=== PATIENT | female | born 2000 | race Caucasian/White ===

== ENCOUNTER 2021-01-20 23:04 | Emergency (ER) | payer BC, MEDICAID, SELFPAY ==
[2021-01-20 23:12] VITALS: BP 166/112; PULSE 75; RESP 18; TEMP 36.8; O2SAT 100; BMI 39.9
--- NOTE | 2021-01-21 00:16 | ED_ITS ---
HPI - Female Genitourinary General: Chief complaint: Urogenital-Female Stated complaint: bleeding, 5 1/2 weeks Time Seen by Provider: 01/21/21 00:16 History of Present Illness: HPI Narrative: Patient is a 20-year-old female that is currently 5-1/2 weeks and comes to the ED with vaginal bleeding. This is patient's first . Around 10:00 tonight she stood up to go to the restroom and the little bit of blood ran down her leg. Says the bleeding has been a small amount. She denies any abdominal pain or cramping. She has an appointment with her OB doctor set up for this coming January 25. Denies any fever, chills, nausea/vomiting. Associated symptoms: Deny abdominal pain, headache(s) or nausea Review of Systems 2 Const: Denies: fever(s), chills or fatigue Eyes: Denies: change in vision or eye discomfort ENMT: Denies: throat pain, odynophagia, nasal discharge or nasal congestion Card: Denies: chest pain, palpitations, edema, swelling of feet/ankles, dyspnea on exertion or orthopnea Resp: Denies: dyspnea, productive cough or non-productive cough GI: Denies: abdominal pain, nausea, vomiting, diarrhea, constipation or hematochezia : Reports: vaginal bleeding; Denies: flank pain, dysuria or hematuria Musc: Denies: neck pain, back pain or extremity swelling Skin/Breast: Denies: rash or new lesions Neuro: Denies: headache(s), numbness in extremities or weakness in extremities PFS ED PFSH: Social History Smoking and tobacco status: never smoked Physical Exam Const: COMMON NORMALS: no acute distress, patient oriented x3, healthy appearing and alert GENERAL APPEARANCE: cooperative and comfortable HENMT: COMMON NORMALS: normocephalic HEAD & SCALP: normocephalic MOUTH: Normal oral and palatal mucosa present THROAT: posterior oropharynx normal and uvula midline Eye: COMMON NORMALS: Equal, round and reactive pupils present PUPIL: Yes Equal, round and reactive pupils present Neck/C-Spine: COMMON NORMALS: supple GENERAL: Yes normal visual inspection Resp: COMMON NORMALS: normal respiratory effort, No retractions, No use of accessory muscles and clear to auscultation bilaterally AUSCULTATION: clear to auscultation bilaterally Cardio: COMMON NORMALS: regular rate, regular rhythm, S1 normal heart sound present, S2 normal heart sound present, No gallops present (Cardio), No clicks present (Cardio), No murmurs present (Cardio) and Peripheral pulses 2+ throughout RATE: regular rate RHYTHM: regular rhythm HEART SOUNDS: S1 normal heart sound present and S2 normal heart sound present PERIPHERAL PULSES: Peripheral pulses 2+ throughout GI: COMMON NORMALS: Normal to inspection, nondistended, normoactive bowel sounds present, Soft to palpation, non-tender and no masses PALPATION: Yes Soft to palpation : COMMON NORMALS: Yes no CVA tenderness BLADDER/KIDNEY EXAM: Yes no CVA tenderness Back/Pelvis: COMMON NORMALS: no CVA tenderness Extremity: COMMON NORMALS: normal to inspection Neuro: COMMON NORMALS: patient oriented x3 and moves all extremities SENSORIUM/ORIENTATION: Yes alert Skin: GENERAL SKIN EXAM: dry skin Course Vital Signs: Vital signs: Vital Signs Temperature 98.2 F 01/20/21 23:12 Pulse Rate 70 01/21/21 01:24 Respiratory Rate 18 01/20/21 23:12 Blood Pressure 152/99 01/21/21 01:24 Pulse Oximetry 99 01/21/21 01:24 MDM - Female MDM Narrative: Medical decision making narrative: Patient is a 20-year-old female that is currently 5 and half weeks comes to the ED with light vaginal bleeding. This is patient's first . Denies any other symptoms. Vital stable. Patient appears nontoxic and in no acute distress. The rest of exam is benign. CBC is unremarkable. UA shows some RBCs but no signs of infection. Patient is Rh type positive and hCG quant was 5967. Ultrasound showed a intrauterine gestational sac but no viability visible at this time. Small subchorionic hemorrhage noted. Patient was discharged home and told to follow-up with her OB doctor at her next scheduled appointment which is on January 25. Return to ED precautions given. She was told to have follow-up ultrasound done within the next 10 to 14 days. Patient understood and agreed with plan. Lab Data: Attestation: I reviewed the patient's lab results. Labs: Lab Results 01/20/21 01/21/21 01/21/21 23:44 00:51 00:51 WBC 9.7 10^3/uL 10^3/ uL (4.0-10.0) RBC 4.71 10^6/uL 10^6 /uL (4.1-5.3) Hgb 11.8 g/dL g/dL (11.5-15.3) Hct 37.6 % % (37.0-47.0) MCV 79.8 fl L fl (81-99) MCH 25.1 pg L pg (28.0-34.0) MCHC 31.4 g/dL g/dL (30.0-36.0) RDW 15.0 % % (12.1-15.1) Plt Count 346 10^3/cmm 10^3 /cmm (130-400) MPV 11.2 fL H fL (7.4-10.4) Neut % (Auto) 55.9 % % Lymph % (Auto) 33.3 % % [place] % (Auto) 7.3 % % Eos % (Auto) 2.6 % % Baso % (Auto) 0.5 % % Neut # (Auto) 5.44 10^3/uL 10^3 /uL (1.8-7.7) Lymph # (Auto) 3.2 10^3/uL 10^3/ uL (0.8-4.8) [place] # (Auto) 0.7 10^3/uL 10^3/ uL (0.2-0.9) Eos # (Auto) 0.3 10^3/uL 10^3/ uL (0.0-0.8) Baso # (Auto) 0.1 10^3/uL 10^3/ uL (0.0-0.1) Nucleated RBC % (a uto) 0 % % Nucleated RBCs # 0.0 /100WBC /100W BC Ser , [place] i-Qnt Urine Color Red (Yellow) Urine Appearance Cloudy (CLEAR) Urine pH 6.5 (5-7) Ur Specific Gravit y 1.015 (1.005-1.030) Urine Protein 1+ H (Negative) Urine Glucose (UA) Norm (Normal) Urine Ketones Negative (Negative) Urine Blood 3+ H (Negative) Urine Nitrate Negative (Negative) Urine Bilirubin Neg (Negative) Urine Urobilinogen 4 mg/dL H mg/dL (Negative) Ur Leukocyte [place] ase Negative (Negative) Urine RBC Too numerous to c nt /hpf H /hpf (0-2) Urine WBC 0-4 /hpf H /hpf (0-5) Ur Squamous Epith Cells 0-4 /hpf H /hpf (0-5) Ur Transition Epit h Cell None /hpf /hpf Amorphous Sediment Not Reportable Urine Bacteria None /hpf /hpf (NONE) Blood Type O Positive Rho(D) Type Positive Antibody Screen Negative 01/21/21 00:51 WBC RBC Hgb Hct MCV MCH MCHC RDW Plt Count MPV Neut % (Auto) Lymph % (Auto) [place] % (Auto) Eos % (Auto) Baso % (Auto) Neut # (Auto) Lymph # (Auto) [place] # (Auto) Eos # (Auto) Baso # (Auto) Nucleated RBC % (a uto) Nucleated RBCs # Ser , [place] i-Qnt 5967.00 mIU/mL mI U/mL Urine Color Urine Appearance Urine pH Ur Specific Gravit y Urine Protein Urine Glucose (UA) Urine Ketones Urine Blood Urine Nitrate Urine Bilirubin Urine Urobilinogen Ur Leukocyte [place] ase Urine RBC Urine WBC Ur Squamous Epith Cells Ur Transition Epit h Cell Amorphous Sediment Urine Bacteria Blood Type Rho(D) Type Antibody Screen Imaging Data: US OB: Attestation: I personally reviewed and interpreted this imaging study as follows: Radiologist's impression: Ultrasound?OB less than 14 weeks with transvaginal?prelim report?gestational sac seen in utero. [address] [address] Ultrasound Report Signed Patient: Yao Carmichael Unit #: [id number] : 2000 Age/Sex: 20 / F ADM Date: 01/20/21 Loc: ER Room/Bed: Attending Dr: Ordering Provider/Ordering MD: Isai Choi MD Date of Service: 01/21/21 Procedure(s): US OB <= 14 weeks fetus [id number] Accession Number(s): [id number] Report Number: [id number] PROCEDURE INFORMATION: Exam: US , Transvaginal Exam date and time: 01/21/2021 11:07 PM Age: 20 years old Clinical indication: complicated by abdominal or pelvic pain; Left lower quadrant; First trimester (<14 weeks 0 days); Gestational age or lmp: 5 w 5 d; ; Additional info: Threatened miscarriage TECHNIQUE: Imaging protocol: Real-time transvaginal obstetrical ultrasound of the maternal pelvis with image documentation. Transvaginal imaging was used for better evaluation of the fetus, adnexa, and/or cervix. COMPARISON: No relevant prior studies available. FINDINGS: Gestation: Probable intrauterine gestational sac. Mean gestational sac diameter 11 mm. Probable small yolk sac seen. pole not confidently visible at this time. heart rate: No cardiac activity documented. Placenta: There is possibly a tiny subchorionic hematoma. Amniotic fluid: Amniotic fluid volume subjectively adequate. MATERNAL: Right adnexa: Maternal right ovary normal in size and appearance with unremarkable internal vascularity. Left adnexa: Maternal left ovary normal in size and appearance with unremarkable internal vascularity. Intraperitoneal space: No pelvic fluid collection. US/US OB <= 14 weeks fetus [id number] IMPRESSION: 1. Possible intrauterine gestational sac although viability is not confirmed at this time. 2. Pseudo gestational sac cannot be excluded, therefore ectopic is technically not excluded at this time. 3. Query small subchorionic hemorrhage. 4. Follow-up OB ultrasound imaging 10-14 days recommended. Radiation Dose CTDIVOL = (mGy): DLP = (mGy-cm) Dictated By: Carter Melendez Signed By: Carter Melendez Signed Date/Time: 01/21/21142 DD/ 663 Discharge Plan Discharge Patient Disposition: Home Clinical Impression: Qualifiers: Weeks of gestation: less than 8 weeks Qualified Code(s): Z3A.01 - Less than 8 weeks gestation of Condition: Stable Prescriptions: No Action triamcinolone acetonide 0.1 % cream 1 applic topical BID Qty: 28.4 RF: 0 prednisone 20 mg tablet 60 mg PO DAILY 9 Days Qty: 18 RF: 0 Discharge Orders: Discharge ED (Routine); Ordered 01/21/21 Ordered By: Oliver Yañez Discharge Diet: Regular Discharge Activity: Increase activity as tolerated Patient Instructions: (ED) Activity Restrictions/Additional Instructions: Follow-up with medical provider as directed. Follow-up with your OB doctor at your next scheduled appointment on [place]. It is recommended that you have a follow-up ultrasound done in the next 10 to 14 days. Take [id number] Tylenol for any pain. Return to the ER or your medical provider if condition worsens. Please read and understand discharge instructions. Thank you for choosing [facility] for your healthcare needs today. Please realize this is an emergency room and that we are providing you with a medical screening exam and this may not be complete and all inclusive of all the testing and or work up that you may need to determine your ailment or severity of your illness. It is very important that you follow up as instructed or that you return to the Emergency Department should you have concerns or if your condition changes or worsens in any way. Coding Level of Care Code ED [employer] for Leatha Estevez Exam Comprehensive
[2021-01-21 00:55] LABS: Bilirubin Urine Neg (Negative); Blood Urine 3+ (Negative); Glucose Urine UA Norm (Normal); Ketones Urine Negative (Negative); Nitrate Urine Negative (Negative); Protein Urine 1+ (Negative); Specific Gravity, Urine 1.015 (1.005-1.030); Urine Appearance Cloudy (CLEAR); Urine Color Red (Yellow); pH Urine 6.5 (5-7)
[2021-01-21 00:56] LABS: Add Urine Microscopic? YES; Leukocyte Esterase Urine Negative (Negative); RBC Urine TOO NUMEROUS TO CNT /hpf (0-2); Urobilinogen Urine 4 mg/dL (Negative); WBC Urine 0-4 /hpf (0-5)
[2021-01-21 00:57] LABS: Add Urine Culture? Yes; Squamous Epithelial Cell Urine 0-4 /hpf (0-5)
[2021-01-21 01:08] LABS: Basophils # 0.1 10^3/uL (0.0-0.1); Basophils % 0.5 %; Eosinophils # 0.3 10^3/uL (0.0-0.8); Eosinophils % 2.6 %; Hematocrit 37.6 % (37.0-47.0); Hemoglobin 11.8 g/dL (11.5-15.3); Lymphocytes # 3.2 10^3/uL (0.8-4.8); Lymphocytes % 33.3 %; Mean Corpuscular HGB Conc 31.4 g/dL (30.0-36.0); Mean Corpuscular Hemoglobin 25.1 pg (28.0-34.0); Mean Corpuscular Volume 79.8 fl (81-99); Mean Platelet Volume 11.2 fL (7.4-10.4); Monocytes # 0.7 10^3/uL (0.2-0.9); Monocytes % 7.3 %; Neutrophils # 5.44 10^3/uL (1.8-7.7); Neutrophils % 55.9 %; Nucleated Red Blood Cells % 0 %; Platelet Count 346 10^3/cmm (130-400); Red Blood Count 4.71 10^6/uL (4.1-5.3); White Blood Count 9.7 10^3/uL (4.0-10.0)
[2021-01-21 01:24] VITALS: BP 152/99; PULSE 70; O2SAT 99
[2021-01-21 03:07] VITALS: RESP 18
--- NOTE | 2021-01-21 23:07 | USR_ITS ---
PROCEDURE INFORMATION: Exam: US , Transvaginal Exam date and time: 01/21/2021 11:07 PM Age: 20 years old Clinical indication: complicated by abdominal or pelvic pain; Left lower quadrant; First trimester (<14 weeks 0 days); Gestational age or lmp: 5 w 5 d; ; Additional info: Threatened miscarriage TECHNIQUE: Imaging protocol: Real-time transvaginal obstetrical ultrasound of the maternal pelvis with image documentation. Transvaginal imaging was used for better evaluation of the fetus, adnexa, and/or cervix. COMPARISON: No relevant prior studies available. FINDINGS: Gestation: Probable intrauterine gestational sac. Mean gestational sac diameter 11 mm. Probable small yolk sac seen. pole not confidently visible at this time. heart rate: No cardiac activity documented. Placenta: There is possibly a tiny subchorionic hematoma. Amniotic fluid: Amniotic fluid volume subjectively adequate. MATERNAL: Right adnexa: Maternal right ovary normal in size and appearance with unremarkable internal vascularity. Left adnexa: Maternal left ovary normal in size and appearance with unremarkable internal vascularity. Intraperitoneal space: No pelvic fluid collection. US/US OB <= 14 weeks fetus [id number] IMPRESSION: 1. Possible intrauterine gestational sac although viability is not confirmed at this time. 2. Pseudo gestational sac cannot be excluded, therefore ectopic is technically not excluded at this time. 3. Query small subchorionic hemorrhage. 4. Follow-up OB ultrasound imaging 10-14 days recommended. Radiation Dose CTDIVOL = (mGy): DLP = (mGy-cm)
== END 2021-01-21 03:09 | disposition home or self-care (01) ==
PROVIDERS: Emergency Medicine; Emergency Provider Physician Assistant
DX: O46.91 Antepartum hemorrhage, unspecified, first trimester (principal); Z3A.01 Less than 8 weeks gestation of pregnancy; Z67.90 Unspecified blood type, Rh positive
CPT/HCPCS: 36415; 76801; 81001; 84702; 85025; 86850; 86900; 87077; 87086; 87186; 88305; 99283

== ENCOUNTER → 2021-12-02 14:10 | Outpatient (BNVA) | payer BC, MEDICAID, SELFPAY | PROVIDERS: Visit Provider Emergency Medicine | DX: Z20.822 Contact with and (suspected) exposure to COVID-19 (principal); J02.9 Acute pharyngitis, unspecified | CPT/HCPCS: 87426 ==

== ENCOUNTER 2022-06-05 13:28 | Emergency (ER) | payer MEDICAID, SELFPAY ==
[2022-06-05 13:29] VITALS: BP 157/89; PULSE 88; RESP 14; TEMP 36.9; O2SAT 100
--- NOTE | 2022-06-05 13:53 | CT_ITS ---
WS: [id number] CT CERVICAL SPINE HISTORY: cervical neck pain after manipulation TECHNIQUE: Contiguous 2.0 mm axial imaging performed through the entire cervical spine. Sagittal and coronal reformats also performed. All CT scans at [facility] use at least one of these dose o ptimization techniques: automated exposure control; mA and/or kV adjustment per patient size (include s targeted exams where dose is matched to clinical indication); or iterative reconstruction. DLP: 1369.62 mGy.cm COMPARISON: None available. Normal cervical alignment. Craniocervical junction, atlantodental interval and C1-C2 alignment is nor mal. C2-C3: Normal. C3-C4: Normal. C4-C5: Normal. C5-C6: Normal. C6-C7: Normal. C7-T1: Normal. Soft tissues are normal. Small cervical chain lymph nodes. Lung apices are clear. CT/CT cervical spin wo con* [id number] IMPRESSION: Normal cervical spine. If there is concern for vertebral artery dissection consider follow-up CT angio gram carotid/vertebral arteries.
--- NOTE | 2022-06-05 13:53 | CT_ITS ---
WS: [id number] CT HEAD NONCONTRAST HISTORY: Dizziness TECHNIQUE: Contiguous axial imaging performed through the brain in 2.5 mm imaging. Bone and soft tiss ue windows. Sagittal and coronal reformats reviewed. All CT scans at [facility] use at least one of these dose optimization techniques: automated exposure control; mA and/or kV adjustment per pa tient size (includes targeted exams where dose is matched to clinical indication); or iterative recon struction. DLP: 1369.62 mGy.cm COMPARISON: None available. No acute intracranial hemorrhage, midline shift or mass effect. No atrophy or prior infarcts or herniation. Ventricles: Normal size with no hydrocephalus. No increased density in the region of the vertebral arteries or carotid arteries. Paranasal sinuses: As visualized are clear. Mastoid air cells: Well pneumatized. Calvarium and scalp: Skull is intact with no soft tissue edema or swelling. CT/CT head wo con* [id number] IMPRESSION: 1. No acute intracranial hemorrhage or edema. 2. No acute or subacute infarct.
--- NOTE | 2022-06-05 14:07 | W.ED.DIZZY ---
HPI - Dizziness General: Chief Complaint: Dizziness Stated Complaint: neck pain sent by Time Seen by Provider: 06/05/22 13:45 History of Present Illness: HPI Narrative: Patient is a 21-year-old female comes to the ED with neck pain. Symptoms started approximately 4 days ago after she had neck manipulation by physical therapist. She saw physical therapist because she has been dealing with migraines for the past 2 weeks. Physical therapist told her that her C2 and C3 were displaced and the PT performed adjustment. After that adjustment she started developing symptoms of neck pain, decreased range of motion in neck and dizziness. At rest her neck pain is a 3 out of 10. It radiates up into the base of her skull and down in between her shoulder blades. She went to urgent care today and they referred her here to the ED for CT imaging. Denies any headaches, numbness tingling or weakness to 1 side of her face or body. Associated symptoms: Denies chest pain, chills, headache(s), nausea, nasal congestion, palpitations or vomiting Associated neuro symptoms: Deny numbness in extremities Review of Systems Const: Denies: fever(s), chills or fatigue Eyes: Denies: change in vision or eye discomfort ENMT: Denies: throat pain, odynophagia, nasal discharge or nasal congestion Card: Denies: chest pain, palpitations, edema, swelling of feet/ankles, dyspnea on exertion or orthopnea Resp: Denies: dyspnea, productive cough or non-productive cough GI: Denies: abdominal pain, nausea, vomiting, diarrhea, constipation or hematochezia : Denies: flank pain, dysuria or hematuria Musc: Reports: neck pain; Denies: back pain or extremity swelling Skin/Breast: Denies: rash or new lesions Neuro: Reports: dizziness; Denies: headache(s), numbness in extremities or weakness in extremities PFS ED PFSH: Medical History No pertinent family history Surgical History No pertinent past surgical history Social History Smoking and tobacco status: never smoked Physical Exam Const: COMMON NORMALS: patient oriented x3 and alert GENERAL APPEARANCE: cooperative HENMT: COMMON NORMALS: normocephalic HEAD & SCALP: normocephalic MOUTH: Normal oral and palatal mucosa present THROAT: posterior oropharynx normal and uvula midline Neck/C-Spine: COMMON NORMALS: supple GENERAL: Yes normal visual inspection CERVICAL SPINE: Yes pain with cervical ROM, Yes Cervical spine tenderness C2 and C3, Yes Paracervical muscle tenderness bilateral and Yes Trapezius muscle tenderness Resp: COMMON NORMALS: normal respiratory effort, No retractions, No use of accessory muscles and clear to auscultation bilaterally AUSCULTATION: clear to auscultation bilaterally Cardio: COMMON NORMALS: regular rate, regular rhythm, S1 normal heart sound present, S2 normal heart sound present, No gallops present (Cardio), No clicks present (Cardio), No murmurs present (Cardio) and Peripheral pulses 2+ throughout RATE: regular rate RHYTHM: regular rhythm HEART SOUNDS: S1 normal heart sound present and S2 normal heart sound present PERIPHERAL PULSES: Peripheral pulses 2+ throughout GI: COMMON NORMALS: Normal to inspection, nondistended, normoactive bowel sounds present, Soft to palpation, non-tender and no masses PALPATION: Yes Soft to palpation : COMMON NORMALS: Yes no CVA tenderness BLADDER/KIDNEY EXAM: Yes no CVA tenderness Back/Pelvis: COMMON NORMALS: no CVA tenderness Extremity: COMMON NORMALS: normal to inspection Neuro: COMMON NORMALS: patient oriented x3, CN's II-XII intact bilaterally, moves all extremities, no focal motor deficits and no sensory deficits noted SENSORIUM/ORIENTATION: Yes alert SPEECH: speech normal GAIT: Yes Normal gait present MOTOR EXAM: 5/5 motor strength present throughout Skin: GENERAL SKIN EXAM: dry skin Course Vital Signs: Vital signs: Vital Signs Temperature 98.5 F 06/05/22 13:29 Pulse Rate 88 06/05/22 13:29 Respiratory Rate 14 06/05/22 13:29 Blood Pressure 157/89 06/05/22 13:29 Pulse Oximetry 100 06/05/22 13:29 Oxygen Delivery Me thod 06/05/22 13:29 MDM - Dizziness Medical Decision Making Patient is a 21-year-old female who comes to the ED with right-sided neck pain and dizziness following a cervical spine manipulation by PT/chiropractor. She was seen at urgent care and directed to come here to ED for CT imaging. Vitals are stable. Neuro exam shows no deficits. Patient does have some cervical spinal tenderness and paracervical muscle tenderness as well. Rest of exam is benign. hCG negative. CBC unremarkable. CT cervical spine showed no acute fractures. CTA of head and neck showed no large vessel stenosis or occlusion and no vertebral artery dissection. Patient was given a dose of Toradol here in the ED. She is stable for discharge home and diagnosed with neck pain and right-sided dizziness. Told to follow-up with her PCP in the next week for reevaluation. Patient understood and agreed with plan. Lab Data I reviewed the patient's lab results. 06/05/22 16:39 Radiology Impressions Cervical Spine CT 06/05/22 13:53 IMPRESSION: Normal cervical spine. If there is concern for vertebral artery dissection consider follow-up CT angiogram carotid/vertebral arteries. Head CT 06/05/22 13:53 IMPRESSION: 1. No acute intracranial hemorrhage or edema. 2. No acute or subacute infarct. Head/Neck CTA 06/05/22 16:07 IMPRESSION: No large vessel stenosis or occlusion. IMPRESSION: No stenosis or occlusion. REFERENCES: NASCET CRITERIA. The degree of stenosis in the cervical segment of the internal carotid artery is based on NASCET criteria. Normal is no stenosis. Mild is less than 50% stenosis. Moderate is 50-69% stenosis. Severe is 70% to 99% stenosis. Total occlusion is no detectable patent lumen. Laboratory Results WBC 8.7 10^3/uL (4.0-10.0) 06/05/22 16:39 RBC 4.65 10^6/uL (4.1-5.3) 06/05/22 16:39 Hgb 11.1 g/dL (11.5-15.3) L 06/05/22 16:39 Hct 36.5 % (37.0-47.0) L 06/05/22 16:39 MCV 78.5 fl (81-99) L 06/05/22 16:39 MCH 23.9 pg (28.0-34.0) L 06/05/22 16:39 MCHC 30.4 g/dL (30.0-36.0) 06/05/22 16:39 RDW 14.7 % (12.1-15.1) 06/05/22 16:39 Plt Count 363 10^3/cmm (130-400) 06/05/22 16:39 MPV 11.3 fL (7.4-10.4) H 06/05/22 16:39 Neut % (Auto) 53.0 % 06/05/22 16:39 Lymph % (Auto) 34.4 % 06/05/22 16:39 [place] % (Auto) 9.2 % 06/05/22 16:39 Eos % (Auto) 2.5 % 06/05/22 16:39 Baso % (Auto) 0.6 % 06/05/22 16:39 Neut # (Auto) 4.59 10^3/uL (1.8-7.7) 06/05/22 16:39 Lymph # (Auto) 3.0 10^3/uL (0.8-4.8) 06/05/22 16:39 [place] # (Auto) 0.8 10^3/uL (0.2-0.9) 06/05/22 16:39 Eos # (Auto) 0.2 10^3/uL (0.0-0.8) 06/05/22 16:39 Baso # (Auto) 0.1 10^3/uL (0.0-0.1) 06/05/22 16:39 Nucleated RBC % (auto) 0 % 06/05/22 16:39 Nucleated RBCs # 0.0 /100WBC 06/05/22 16:39 HCG, Qual Negative (Negative) 06/05/22 13:58 Urine Color Yellow (Yellow) 06/05/22 13:58 Urine Appearance Hazy (CLEAR) A 06/05/22 13:58 Urine pH 8 (5-7) H 06/05/22 13:58 Ur Specific [place] 1.010 (1.005-1.030) 06/05/22 13:58 Urine Protein Neg (Negative) 06/05/22 13:58 Urine Glucose (UA) Norm (Normal) 06/05/22 13:58 Urine Ketones Negative (Negative) 06/05/22 13:58 Urine Blood Neg (Negative) 06/05/22 13:58 Urine Nitrate Negative (Negative) 06/05/22 13:58 Urine Bilirubin Neg (Negative) 06/05/22 13:58 Prot Sulfosalicylic Acd Negative (Negative) 06/05/22 13:58 Urine Urobilinogen Neg mg/dL (Negative) 06/05/22 13:58 Ur Leukocyte Esterase Negative (Negative) 06/05/22 13:58 Urine RBC None /hpf (0-2) 06/05/22 13:58 Urine WBC 0-4 /hpf (0-5) H 06/05/22 13:58 Ur Squamous Epith Cells 10-15 /hpf (0-5) H 06/05/22 13:58 Amorphous Sediment Not Reportable 06/05/22 13:58 Urine Bacteria 1+ /hpf (NONE) H 06/05/22 13:58 Discharge Plan Discharge Patient Disposition: Home Clinical Impression: Neck pain on right side, Dizziness Condition: Stable Prescriptions: New ibuprofen 800 mg tablet 800 mg PO Q8H PRN (Reason: pain) Qty: 20 0RF meclizine 25 mg tablet 25 mg PO BID PRN (Reason: dizziness) Qty: 20 0RF methocarbamol 750 mg tablet 750 mg PO Q8H PRN (Reason: Neck muscle spasms and pain) Qty: 20 0RF Discharge Orders: Discharge ED (Routine); Ordered 06/05/22 Ordered By: Oliver Yañez Referrals: Marguerite Deleon FNP [Primary Care Provider] - Discharge Diet: Regular Discharge Activity: Increase activity as tolerated Patient Instructions: Neck Pain (ED) Activity Restrictions/Additional Instructions: Follow-up with medical provider as directed in the next 5 to 7 days reevaluation. Take medications as prescribed. Return to the ER or your medical provider if condition worsens. Please read and understand discharge instructions. Thank you for choosing [facility] for your healthcare needs today. Please realize this is an emergency room and that we are providing you with a medical screening exam and this may not be complete and all inclusive of all the testing and or work up that you may need to determine your ailment or severity of your illness. It is very important that you follow up as instructed or that you return to the Emergency Department should you have concerns or if your condition changes or worsens in any way. Coding Level of Care Code ED [employer] for Leatha Estevez
[2022-06-05 14:16] LABS: HCG Qualitative Urine. Negative (Negative)
[2022-06-05 14:34] LABS: Bilirubin Urine Neg (Negative); Blood Urine Neg (Negative); Glucose Urine UA Norm (Normal); Ketones Urine Negative (Negative); Nitrate Urine Negative (Negative); Protein Urine Neg (Negative); Sulfosalicylic Acid Urine Negative (Negative); Urine Appearance Hazy (CLEAR); Urine Color Yellow (Yellow); pH Urine 8 (5-7)
[2022-06-05 14:35] LABS: Add Urine Culture? No; Add Urine Microscopic? YES; Bacteria Urine 1+ /hpf; Leukocyte Esterase Urine Negative (Negative); Urobilinogen Urine Neg (Negative); WBC Urine 0-4 /hpf (0-5)
[2022-06-05] MEDS: ketorolac 60 mg/2 mL INJ IM (14:58)
--- NOTE | 2022-06-05 16:07 | CTR_ITS ---
PROCEDURE INFORMATION: Exam: CTA Head With Contrast, Arteriography Exam date and time: 06/05/2022 4:22 PM Age: 21 years old Clinical indication: Dizziness and giddiness; Additional info: Neck pain after chiropractic neck manipulation, PT having dizziness and right side neck pain TECHNIQUE: Imaging protocol: Computed tomographic angiography of the head with contrast. Exam focused on the arteries. 3D rendering (Not supervised by radiologist): MIP and/or 3D reconstructed images were created by the technologist. Radiation optimization: All CT scans at this facility use at least one of these dose optimization techniques: automated exposure control; mA and/or kV adjustment per patient size (includes targeted exams where dose is matched to clinical indication); or iterative reconstruction. Contrast material: OMNI 350; Contrast volume: 100 ml; Contrast route: INTRAVENOUS (IV); REPORTING DATA: Count of CT and Cardiac NM exams in prior 12 months: This patient has received 2 known CTs and 0 known cardiac nuclear medicine studies in the 12 months prior to the current study. COMPARISON: CT head wo con* [id number] 06/05/2022 2:11 PM RADIATION DOSE METRICS: Total DLP (mGy-cm): 547.8 FINDINGS: ANTERIOR CIRCULATION: Right internal carotid artery: Intracranial segment is patent with no significant stenosis. No aneurysm. Right middle cerebral artery: No occlusion or significant stenosis. No aneurysm. Right anterior cerebral artery: No occlusion or significant stenosis. No aneurysm. Left internal carotid artery: Intracranial segment is patent with no significant stenosis. No aneurysm. Left middle cerebral artery: No occlusion or significant stenosis. No aneurysm. Left anterior cerebral artery: No occlusion or significant stenosis. No aneurysm. POSTERIOR CIRCULATION: Right vertebral artery: No occlusion or significant stenosis. No aneurysm. Left vertebral artery: No occlusion or significant stenosis. No aneurysm. Basilar artery: No occlusion or significant stenosis. No aneurysm. Right posterior cerebral artery: No occlusion or significant stenosis. No aneurysm. Left posterior cerebral artery: No occlusion or significant stenosis. No aneurysm. Brain: No definite mass, mass effect, or midline shift. Cerebral ventricles: No ventriculomegaly. Bones/joints: Unremarkable. No acute fracture. Soft tissues: Unremarkable. PROCEDURE INFORMATION: Exam: CTA Neck With Contrast Exam date and time: 06/05/2022 4:22 PM Age: 21 years old Clinical indication: Dizziness and giddiness; Additional info: Neck pain after chiropractic neck manipulation, PT having dizziness and right side neck pain TECHNIQUE: Imaging protocol: Computed tomographic angiography of the neck with contrast. 3D rendering (Not supervised by radiologist): MIP and/or 3D reconstructed images were created by the technologist. Radiation optimization: All CT scans at this facility use at least one of these dose optimization techniques: automated exposure control; mA and/or kV adjustment per patient size (includes targeted exams where dose is matched to clinical indication); or iterative reconstruction. Contrast material: OMNI 350; Contrast volume: 100 ml; Contrast route: INTRAVENOUS (IV); REPORTING DATA: Count of CT and Cardiac NM exams in prior 12 months: This patient has received 2 known CTs and 0 known cardiac nuclear medicine studies in the 12 months prior to the current study. COMPARISON: CT cervical spin wo con* [id number] 06/05/2022 2:11 PM RADIATION DOSE METRICS: Total DLP (mGy-cm): 547.8 FINDINGS: Right common carotid artery: No stenosis. No dissection or occlusion. Right internal carotid artery: No stenosis of the extracranial segment. No dissection or occlusion. Right external carotid artery: No occlusion or stenosis of the origin. Left common carotid artery: No stenosis. No dissection or occlusion. Left internal carotid artery: No stenosis of the extracranial segment. No dissection or occlusion. Left external carotid artery: No occlusion or stenosis of the origin. Right vertebral artery: No stenosis. No dissection or occlusion. Left vertebral artery: No stenosis. No dissection or occlusion. Soft tissues: Normal. No significant soft tissue swelling. Bones/joints: No acute fracture. CT/CT angio headneck* [id number] IMPRESSION: No large vessel stenosis or occlusion. IMPRESSION: No stenosis or occlusion. REFERENCES: NASCET CRITERIA. The degree of stenosis in the cervical segment of the internal carotid artery is based on NASCET criteria. Normal is no stenosis. Mild is less than 50% stenosis. Moderate is 50-69% stenosis. Severe is 70% to 99% stenosis. Total occlusion is no detectable patent lumen.
[2022-06-05] MEDS: iohexol 350 mg/mL 500 mL Btl (per mL) IV (16:30)
[2022-06-05 16:45] LABS: Basophils # 0.1 10^3/uL (0.0-0.1); Basophils % 0.6 %; Eosinophils # 0.2 10^3/uL (0.0-0.8); Eosinophils % 2.5 %; Hematocrit 36.5 % (37.0-47.0); Hemoglobin 11.1 g/dL (11.5-15.3); Lymphocytes % 34.4 %; Mean Corpuscular HGB Conc 30.4 g/dL (30.0-36.0); Mean Corpuscular Hemoglobin 23.9 pg (28.0-34.0); Mean Corpuscular Volume 78.5 fl (81-99); Mean Platelet Volume 11.3 fL (7.4-10.4); Monocytes # 0.8 10^3/uL (0.2-0.9); Monocytes % 9.2 %; Neutrophils # 4.59 10^3/uL (1.8-7.7); Nucleated Red Blood Cells % 0 %; Platelet Count 363 10^3/cmm (130-400); Red Blood Count 4.65 10^6/uL (4.1-5.3); Red Cell Distribution Width 14.7 % (12.1-15.1); White Blood Count 8.7 10^3/uL (4.0-10.0)
== END 2022-06-05 17:47 | disposition home or self-care (01) ==
PROVIDERS: Emergency Provider Physician Assistant; PCP Nurse Practitioner Family
DX: M54.2 Cervicalgia (principal); R42 Dizziness and giddiness
CPT/HCPCS: 70450; 70496; 70498; 72125; 81001; 81025; 85025; 96372; 99285; J1885; Q9967

== ENCOUNTER 2022-07-16 20:24 | Emergency (ER) | payer MEDICAID, SELFPAY ==
[2022-07-16 20:31] VITALS: BP 144/93; PULSE 88; RESP 24; TEMP 36.6; O2SAT 100; BMI 41.5
--- NOTE | 2022-07-16 20:46 | XRR_ITS ---
PROCEDURE INFORMATION: Exam: XR Chest Exam date and time: 07/16/2022 9:00 PM Age: 21 years old Clinical indication: Shortness of breath; Additional info: SOB TECHNIQUE: Imaging protocol: Radiologic exam of the chest. Views: 1 view. COMPARISON: CT cervical spin wo con* [id number] 06/05/2022 2:11 PM FINDINGS: Lungs: Unremarkable. No consolidation. Pleural spaces: Unremarkable. No pleural effusion. No pneumothorax. Heart/Mediastinum: Unremarkable. No cardiomegaly. Bones/joints: Unremarkable. XR/XR chest 1V portable [id number] IMPRESSION: No acute findings.
--- NOTE | 2022-07-16 20:52 | ECG_ITS ---
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 Measurements Intervals Etta Rate: 66 P: 14 NE: 135 QRS: 27 QRSD: 102 T: 10 QT: 383 QTc: 402 Interpretive Statements SINUS RHYTHM WITH SINUS ARRHYTHMIA No previous ECG available for comparison Electronically Signed On 07-17-2022 14:27:34 CDT by Carter Salazar M.D. [email or web address]
--- NOTE | 2022-07-16 20:53 | W.ED.SOB ---
HPI - SOB/Dyspnea General: Chief Complaint: Shortness of Breath/Dyspnea Stated Complaint: difficulty breathing Time Seen by Provider: 07/16/22 20:45 History of Present Illness: HPI Narrative: 21-year-old female who was in her normal state of health earlier today. She notes that at home she began to get short of breath. She has a history of childhood asthma. She feels like she cannot get enough air in. She denies fever. She has not been coughing. She does not know if she is or not. No fever. MD elicited complaint: shortness of breath Pertinent past history: asthma Onset (ago): hour(s) Context: other Timing: constant Severity: moderate Exacerbating factors: exertion Relieving factors: nothing Known history of: asthma Associated symptoms: Reports dizziness and nausea; Deny abdominal pain, chest congestion, chest pain, cough, fever(s) or vomiting Treatment prior to arrival: none Review of Systems Const: Denies: fever(s) ENMT: Denies: throat pain Card: Denies: chest pain Resp: Reports: dyspnea; Denies: productive cough, non-productive cough or chest congestion GI: Reports: nausea; Denies: abdominal pain or vomiting Neuro: Reports: dizziness PFS ED PFSH: Medical History No pertinent family history Surgical History No pertinent past surgical history Social History Smoking and tobacco status: never smoked Female Reproductive History: Date of last menstrual period: 05/21/22 Physical Exam Const: GENERAL APPEARANCE: cooperative and ill appearing (Mildly); not frail appearing HENMT: COMMON NORMALS: normocephalic and atraumatic HEAD & SCALP: normocephalic and atraumatic Eye: COMMON NORMALS: Equal, round and reactive pupils present and EOMs intact bilaterally PUPIL: Yes Equal, round and reactive pupils present Chest: CHEST: Yes Symmetrical chest wall rise Resp: EFFORT & INSPECTION: Yes tachypneic and Yes uses accessory muscles AUSCULTATION: no rhonchi and wheezes (Slight intermittent) Cardio: COMMON NORMALS: regular rate and regular rhythm RATE: regular rate RHYTHM: regular rhythm GI: INSPECTION: Yes normal to inspection Extremity: COMMON NORMALS: no pedal edema Neuro: RAMON COMA SCALE: document GCS findings Media coma scale eye opening: Spontaneous Media coma scale verbal response: Orientated Media coma scale motor response: Obey commands Media coma scale total score: 15 Course Vital Signs: Vital signs: Vital Signs Temperature 97.8 F 07/16/22 20:31 Pulse Rate 77 07/16/22 23:15 Respiratory Rate 22 H 07/16/22 23:15 Blood Pressure 133/99 07/16/22 21:26 Pulse Oximetry 99 07/16/22 23:15 Oxygen Delivery Me thod Room Air 07/16/22 23:15 MDM - SOB/Dyspnea Medical Decision Making Patient is significantly improved following Solu-Medrol administration, and administration of 1 mg of Ativan for hyperventilation syndrome related to her shortness of breath. White blood cell count is 11. Hemoglobin is 12. Bicarbonate level is 19, again likely related to hyperventilation. Chest x-ray shows no acute findings. hCG is negative. COVID is negative. D-dimer is nondetectable. Vitals have been good here including good oxygenation without tachycardia. With improvement in her symptoms, she will be allowed home. She will be placed on prednisone for 5 days as a burst, with an albuterol inhaler. Outpatient follow-up encouraged. She knows to return if worsening symptoms despite treatment. Lab Data 07/16/22 21:00 07/16/22 21:00 Labs/Radiology: Radiology Impressions Chest X-Ray 07/16/22 20:46 IMPRESSION: No acute findings. Laboratory Results WBC 10.8 10^3/uL (4.0-10.0) H 07/16/22 21:00 RBC 5.14 10^6/uL (4.1-5.3) 07/16/22 21:00 Hgb 12.4 g/dL (11.5-15.3) 07/16/22 21:00 Hct 39.1 % (37.0-47.0) 07/16/22 21:00 MCV 76.1 fl (81-99) L 07/16/22 21:00 MCH 24.1 pg (28.0-34.0) L 07/16/22 21:00 MCHC 31.7 g/dL (30.0-36.0) 07/16/22 21:00 RDW 14.6 % (12.1-15.1) 07/16/22 21:00 Plt Count 378 10^3/cmm (130-400) 07/16/22 21:00 MPV 11.2 fL (7.4-10.4) H 07/16/22 21:00 Neut % (Auto) 50.4 % 07/16/22 21:00 Lymph % (Auto) 37.3 % 07/16/22 21:00 [place] % (Auto) 6.2 % 07/16/22 21:00 Eos % (Auto) 5.0 % 07/16/22 21:00 Baso % (Auto) 0.6 % 07/16/22 21:00 Neut # (Auto) 5.45 10^3/uL (1.8-7.7) 07/16/22 21:00 Lymph # (Auto) 4.0 10^3/uL (0.8-4.8) 07/16/22 21:00 [place] # (Auto) 0.7 10^3/uL (0.2-0.9) 07/16/22 21:00 Eos # (Auto) 0.5 10^3/uL (0.0-0.8) 07/16/22 21:00 Baso # (Auto) 0.1 10^3/uL (0.0-0.1) 07/16/22 21:00 Nucleated RBC % (auto) 0 % 07/16/22 21:00 Nucleated RBCs # 0.0 /100WBC 07/16/22 21:00 D-Dimer <= 0.27 ug/mIFEU (0-0.59) 07/16/22 21:00 Sodium 137 mmol/L (136-145) 07/16/22 21:00 Potassium 3.5 mmol/L (3.5-5.1) 07/16/22 21:00 Chloride 102 mmol/L (98-107) 07/16/22 21:00 Carbon Dioxide 19 mmol/L (22-29) L 07/16/22 21:00 Anion Gap 19.5 (5-19) H 07/16/22 21:00 BUN 12 mg/dL (6-20) 07/16/22 21:00 Creatinine 0.7 mg/dL (0.5-0.9) 07/16/22 21:00 GFR Calculation 103.7 mL/min (90-130) 07/16/22 21:00 Glucose 87 mg/dL (65-115) 07/16/22 21:00 Calculated Osmolality 283 mOsm/kg (285-295) L 07/16/22 21:00 Calcium 10.0 mg/dL (8.5-10.5) 07/16/22 21:00 Total Bilirubin 0.4 mg/dL (0.15-1.2) 07/16/22 21:00 AST 16 U/L (0-32) 07/16/22 21:00 ALT 13 U/L (0-33) 07/16/22 21:00 Alkaline Phosphatase 51 U/L (35-105) 07/16/22 21:00 Total Protein 7.6 g/dL (6.6-8.7) 07/16/22 21:00 Albumin 4.5 g/dL (3.5-5.2) 07/16/22 21:00 Globulin 3.1 g/dL (1.3-4.6) 07/16/22 21:00 HCG, Qual Negative (Negative) 07/16/22 21:00 SARS-CoV-2 Ag (Rapid) negative (Negative) 07/16/22 21:15 Discharge Plan Discharge Patient Disposition: Home Clinical Impression: Asthma with exacerbation Condition: Stable Prescriptions: New prednisone 20 mg tablet 60 mg PO DAILY Qty: 15 0RF No Action prednisone 20 mg tablet 20 mg PO DAILY 5 Days Qty: 5 0RF ibuprofen 800 mg tablet 800 mg PO Q8H PRN (Reason: pain) Qty: 20 0RF meclizine 25 mg tablet 25 mg PO BID PRN (Reason: dizziness) Qty: 20 0RF methocarbamol 750 mg tablet 750 mg PO Q8H PRN (Reason: Neck muscle spasms and pain) Qty: 20 0RF Discharge Orders: Discharge ED (Routine); Ordered 07/16/22 Ordered By: Santos Brown Referrals: Marguerite Deleon LINER CHECKER [Primary Care Provider] - 1-3 days Patient Instructions: Asthma Exacerbation - Adult, Bronchospasm (ED) Activity Restrictions/Additional Instructions: Use your dispensed albuterol inhaler every 4 hours while awake for the next 48 hours, then as needed. Medication as directed. Avoidance of potential allergies may help. Return for worsening shortness of breath, fever, chest discomfort, vomiting, any other concerning symptoms despite treatment. See your doctor this week. Coding Level of Care Code ED Final Inspector Movement Assembly for Leatha Estevez
[2022-07-16] MEDS: LORazepam 2 mg/mL INJ 1 mL 1 MG IVP (20:54)
[2022-07-16 20:55] VITALS: PULSE 74; RESP 32; O2SAT 98
[2022-07-16] MEDS: ipratropium-albuterol 3 mL Neb INHALATION (20:55)
[2022-07-16 21:08] LABS: Basophils # 0.1 10^3/uL (0.0-0.1); Basophils % 0.6 %; Eosinophils # 0.5 10^3/uL (0.0-0.8); Hematocrit 39.1 % (37.0-47.0); Hemoglobin 12.4 g/dL (11.5-15.3); Lymphocytes % 37.3 %; Mean Corpuscular HGB Conc 31.7 g/dL (30.0-36.0); Mean Corpuscular Hemoglobin 24.1 pg (28.0-34.0); Mean Corpuscular Volume 76.1 fl (81-99); Mean Platelet Volume 11.2 fL (7.4-10.4); Monocytes # 0.7 10^3/uL (0.2-0.9); Monocytes % 6.2 %; Neutrophils # 5.45 10^3/uL (1.8-7.7); Neutrophils % 50.4 %; Nucleated Red Blood Cells % 0 %; Platelet Count 378 10^3/cmm (130-400); Red Blood Count 5.14 10^6/uL (4.1-5.3); Red Cell Distribution Width 14.6 % (12.1-15.1); White Blood Count 10.8 10^3/uL (4.0-10.0)
[2022-07-16 21:17] LABS: HCG, Serum Qual Negative (Negative)
[2022-07-16 21:23] LABS: Alanine Aminotransferase 13 U/L (0-33); Albumin Level 4.5 g/dL (3.5-5.2); Alkaline Phosphatase 51 U/L (35-105); Anion Gap 19.5 (5-19); Aspartate Amino Transferase 16 U/L (0-32); Blood Urea Nitrogen 12 mg/dL (6-20); Carbon Dioxide 19 mmol/L (22-29); Chloride 102 mmol/L (98-107); Creatinine Clr Calc Pharmacy 156.9874; Globulin 3.1 g/dL (1.3-4.6); Glomerular Filtration Rate 103.7 mL/min (90-130); Glucose 87 mg/dL (65-115); Osmolality Calculated 283 mOsm/kg (285-295); Potassium 3.5 mmol/L (3.5-5.1); Sodium 137 mmol/L (136-145); Total Bilirubin 0.4 mg/dL (0.15-1.2); Total Protein 7.6 g/dL (6.6-8.7)
[2022-07-16 21:26] VITALS: BP 133/99; PULSE 69; RESP 20; O2SAT 100
[2022-07-16 21:30] LABS: D Dimer <= 0.27 ug/mIFEU (0-0.59)
[2022-07-16 21:35] LABS: SARS Covid-2 Antigen negative (Negative)
[2022-07-16 23:15] VITALS: PULSE 77; RESP 22; O2SAT 99
[2022-07-16] MEDS: albuterol 8 gm MDI 2 PUFF INHALATION (23:15)
[2022-07-16 23:28] VITALS: BP 110/68; PULSE 61; RESP 16; O2SAT 96
== END 2022-07-16 23:31 | disposition home or self-care (01) ==
PROVIDERS: Emergency Provider Emergency Medicine; PCP Nurse Practitioner Family
DX: J45.901 Unspecified asthma with (acute) exacerbation (principal); Z20.822 Contact with and (suspected) exposure to COVID-19
CPT/HCPCS: 71045; 80053; 84703; 85025; 85378; 87426; 93005; 94640; 96374; 96375; 99285; J2060; J2930; J3535

== ENCOUNTER 2022-12-26 00:03 | Emergency (ER) | payer MEDICAID, SELFPAY ==
[2022-12-26 00:08] VITALS: BP 169/94; PULSE 89; RESP 18; TEMP 37.2; O2SAT 100; BMI 41.5
--- NOTE | 2022-12-26 00:15 | ED_ITS ---
HPI - Abdominal Pain General: Chief Complaint: Abdominal Pain Stated Complaint: ABD Pain Time Seen by Provider: 12/26/22 00:07 Source: patient Mode of arrival: ambulatory Limitations: no limitations History of Present Illness: Patient is a 22-year-old female who presents to the ED with abdominal pain. Reports pain has been ongoing for the past week has increasingly gotten worse today. Reports pain at right lower quadrant and radiates to the left lower quadrant. Reports some nausea, absence of menstruation, and diarrhea. Denies any chest pain, fever or vomiting. No other complaints at this time. MD elicited complaint: abdominal pain Associated Symptoms: Reports GI cramping, diarrhea and nausea; Denies chills, fever(s) and vomiting Review of Systems Const: Denies: fever(s), chills or night sweats Eyes: Denies: change in vision or blurry vision ENMT: Denies: throat pain or mouth pain Card: Denies: chest pain or palpitations Resp: Denies: dyspnea or productive cough GI: Reports: abdominal pain, nausea, diarrhea and GI cramping; Denies: vomiting : Reports: amenorrhea Musc: Denies: neck pain or back pain Skin/Breast: Denies: rash Neuro: Denies: headache(s) PFSH ED PFSH: Medical History No pertinent family history Surgical History No pertinent past surgical history Social History Smoking and tobacco status: never smoked Physical Exam Const: COMMON NORMALS: alert GENERAL APPEARANCE: cooperative ORIENTATION/CONSCIOUSNESS: Yes awake HENMT: COMMON NORMALS: normocephalic HEAD & SCALP: normocephalic Eye: COMMON NORMALS: EOMs intact bilaterally Neck/C-Spine: COMMON NORMALS: full ROM, no lymphadenopathy and no JVD Lymph: LYMPHATIC: no lymphadenopathy noted Chest: CHEST: Yes Symmetrical chest wall rise Resp: COMMON NORMALS: normal respiratory effort and clear to auscultation bilaterally AUSCULTATION: clear to auscultation bilaterally Cardio: COMMON NORMALS: no JVD and S1 normal heart sound present HEART SOUNDS: S1 normal heart sound present GI: COMMON NORMALS: Soft to palpation INSPECTION: Yes normal to inspection AUSCULTATION: Yes normoactive bowel sounds PALPATION: Yes Soft to palpation and Yes Tenderness to palpation present (GI) : COMMON NORMALS: Yes no CVA tenderness BLADDER/KIDNEY EXAM: Yes no CVA tenderness Back/Pelvis: COMMON NORMALS: no CVA tenderness Neuro: SENSORIUM/ORIENTATION: Yes alert Course Vital Signs: Vital signs: Vital Signs Temperature 98.9 F 12/26/22 00:08 Pulse Rate 64 12/26/22 01:38 Respiratory Rate 20 H 12/26/22 01:38 Blood Pressure 148/69 12/26/22 01:38 Pulse Oximetry 99 12/26/22 01:38 Oxygen Delivery Me thod Room Air 12/26/22 01:38 MDM - Abdominal Pain Medical Decision Making Patient presents here with abdominal pain patient was found not to be here ultrasound here showed an IUP patient has no signs of ectopic she has no signs appendicitis she feels improved we will get her follow-up with OB she is to return if worsening. Medical Records I reviewed the patient's medical records. Lab Data I reviewed the patient's lab results. 12/26/22 00:17 10 00:17 Labs/Radiology: Laboratory Results WBC 10.22 10^3/uL (3.29-11.43) 12/26/22 00:17 RBC 4.74 10^6/uL (3.85-5.65) 12/26/22 00:17 Hgb 12.20 g/dL (11.27-16.99) 12/26/22 00:17 Hct 38.3 % (36-47) 12/26/22 00:17 MCV 80.8 fl (85-98) L 12/26/22 00:17 MCH 25.7 pg (27-33) L 12/26/22 00:17 MCHC 31.9 g/dL (30-55) 12/26/22 00:17 RDW 14.7 % (12.1-15.1) 12/26/22 00:17 Plt Count 300 10^3/cmm (157-399) 12/26/22 00:17 MPV 11.5 fL (7.4-10.4) H 12/26/22 00:17 Neut % (Auto) 57.3 % 12/26/22 00:17 Lymph % (Auto) 33.5 % 12/26/22 00:17 [place] % (Auto) 6.8 % 12/26/22 00:17 Eos % (Auto) 1.5 % 12/26/22 00:17 Baso % (Auto) 0.5 % 12/26/22 00:17 Neut # (Auto) 5.87 10^3/uL (1.8-7.7) 12/26/22 00:17 Lymph # (Auto) 3.4 10^3/uL (0.8-4.8) 12/26/22 00:17 [place] # (Auto) 0.7 10^3/uL (0.2-0.9) 12/26/22 00:17 Eos # (Auto) 0.2 10^3/uL (0.0-0.8) 12/26/22 00:17 Baso # (Auto) 0.1 10^3/uL (0.0-0.1) 12/26/22 00:17 Nucleated RBC % (auto) 0 % 12/26/22 00:17 Nucleated RBCs # 0.0 /100WBC 12/26/22 00:17 Sodium 137 mmol/L (136-145) 12/26/22 00:17 Potassium 3.5 mmol/L (3.5-5.1) 12/26/22 00:17 Chloride 105 mmol/L (98-107) 12/26/22 00:17 Carbon Dioxide 22 mmol/L (22-29) 12/26/22 00:17 Anion Gap 13.5 (5-19) 12/26/22 00:17 BUN 9 mg/dL (6-20) 12/26/22 00:17 Creatinine 0.7 mg/dL (0.5-0.9) 12/26/22 00:17 GFR Calculation 102.8 mL/min (90-130) 12/26/22 00:17 Glucose 101 mg/dL (65-115) 12/26/22 00:17 Calculated Osmolality 283 mOsm/kg (285-295) L 12/26/22 00:17 Calcium 8.9 mg/dL (8.5-10.5) 12/26/22 00:17 Total Bilirubin 0.4 mg/dL (0.15-1.2) 12/26/22 00:17 AST 10 U/L (0-32) 12/26/22 00:17 ALT 9 U/L (0-33) 12/26/22 00:17 Alkaline Phosphatase 44 U/L (35-105) 12/26/22 00:17 Total Protein 6.9 g/dL (6.6-8.7) 12/26/22 00:17 Albumin 4.2 g/dL (3.5-5.2) 12/26/22 00:17 Globulin 2.7 g/dL (1.3-4.6) 12/26/22 00:17 Lipase 37 U/L (13-60) 12/26/22 00:17 HCG, Qual Positive (Negative) H 12/26/22 00:17 Ser , Semi-Qnt 99457.00 mIU/mL 12/26/22 00:17 Urine Color Yellow (Yellow) 12/26/22 00:40 Urine Appearance Clear (CLEAR) 12/26/22 00:40 Urine pH 6 (5-7) 12/26/22 00:40 Ur Specific [place] 1.020 (1.005-1.030) 12/26/22 00:40 Urine Protein Neg (Negative) 12/26/22 00:40 Urine Glucose (UA) Norm (Normal) 12/26/22 00:40 Urine Ketones Negative (Negative) 12/26/22 00:40 Urine Blood Neg (Negative) 12/26/22 00:40 Urine Nitrate Negative (Negative) 12/26/22 00:40 Urine Bilirubin Neg (Negative) 12/26/22 00:40 Urine Urobilinogen 4 mg/dL (Negative) H 12/26/22 00:40 Ur Leukocyte Esterase Negative (Negative) 12/26/22 00:40 XR interpretation done by ED provider, pending radiology final review Discharge Plan Discharge Patient Disposition: Home Clinical Impression: Abdominal pain affecting Condition: Stable Prescriptions: New ondansetron 4 mg tablet,disintegrating 4 mg PO Q6H PRN (Reason: nausea and vomiting) Qty: 14 0RF No Action prednisone 20 mg tablet 20 mg PO DAILY 5 Days Qty: 5 0RF ibuprofen 800 mg tablet 800 mg PO Q8H PRN (Reason: pain) Qty: 20 0RF meclizine 25 mg tablet 25 mg PO BID PRN (Reason: dizziness) Qty: 20 0RF methocarbamol 750 mg tablet 750 mg PO Q8H PRN (Reason: Neck muscle spasms and pain) Qty: 20 0RF prednisone 20 mg tablet 60 mg PO DAILY Qty: 15 0RF Discharge Orders: Discharge ED (Routine); Ordered 12/26/22 Ordered By: Isai Choi Referrals: More Bell FNP [Primary Care Provider] - Discharge Diet: Advance as tolerated Discharge Activity: Resume usual activity Patient Instructions: Abdominal Pain in (ED) Coding Level of Care Code ED Mechanical Maintenance Engineer for Leatha Estevez
[2022-12-26 00:26] LABS: Basophils # 0.1 10^3/uL (0.0-0.1); Basophils % 0.5 %; Eosinophils # 0.2 10^3/uL (0.0-0.8); Eosinophils % 1.5 %; Hematocrit 38.3 % (36-47); Lymphocytes # 3.4 10^3/uL (0.8-4.8); Lymphocytes % 33.5 %; Mean Corpuscular HGB Conc 31.9 g/dL (30-55); Mean Corpuscular Hemoglobin 25.7 pg (27-33); Mean Corpuscular Volume 80.8 fl (85-98); Mean Platelet Volume 11.5 fL (7.4-10.4); Monocytes # 0.7 10^3/uL (0.2-0.9); Monocytes % 6.8 %; Neutrophils # 5.87 10^3/uL (1.8-7.7); Neutrophils % 57.3 %; Nucleated Red Blood Cells % 0 %; Platelet Count 300 10^3/cmm (157-399); Red Blood Count 4.74 10^6/uL (3.85-5.65); Red Cell Distribution Width 14.7 % (12.1-15.1); White Blood Count 10.22 10^3/uL (3.29-11.43)
[2022-12-26] MEDS: sodium chloride 0.9% 1,000 ML 999 ML IV (00:38)
[2022-12-26 00:39] LABS: Alanine Aminotransferase 9 U/L (0-33); Albumin Level 4.2 g/dL (3.5-5.2); Alkaline Phosphatase 44 U/L (35-105); Anion Gap 13.5 (5-19); Aspartate Amino Transferase 10 U/L (0-32); Blood Urea Nitrogen 9 mg/dL (6-20); Calcium 8.9 mg/dL (8.5-10.5); Carbon Dioxide 22 mmol/L (22-29); Chloride 105 mmol/L (98-107); Globulin 2.7 g/dL (1.3-4.6); Glomerular Filtration Rate 102.8 mL/min (90-130); Glucose 101 mg/dL (65-115); Lipase 37 U/L (13-60); Osmolality Calculated 283 mOsm/kg (285-295); Potassium 3.5 mmol/L (3.5-5.1); Sodium 137 mmol/L (136-145); Total Bilirubin 0.4 mg/dL (0.15-1.2); Total Protein 6.9 g/dL (6.6-8.7)
[2022-12-26 00:40] LABS: HCG, Serum Qual Positive (Negative)
--- NOTE | 2022-12-26 00:41 | USR_ITS ---
PROCEDURE INFORMATION: Exam: US Duplex Artery or Vein of the Abdominal and/or Reproductive Organs, Limited Exam date and time: 12/26/2022 1:13 AM Age: 22 years old Clinical indication: complicated by abdominal or pelvic pain; Generalized abdominal pain; First trimester (<14 weeks 0 days); Gestational age or lmp: 8w 1d; ; Additional info: Abd pain TECHNIQUE: Imaging protocol: Real-time duplex ultrasound scan of the arterial or venous flow of the abdomen and/or reproductive organs, with color Doppler flow and spectral waveform analysis with image documentation. Exam focused on the region of clinical interest. Duplex exam was performed to evaluate for vascular conditions. COMPARISON: No relevant prior studies available. FINDINGS: Single living intrauterine fetus. [place] rump length of 16.5 mm estimates age at 8 weeks, 1 day. heart activity documented by the technologist, 153 bpm. Amniotic fluid appears adequate for gestation. Apparent subchorionic hematoma, measuring 24 x 16 x 23 mm. This appears to surround almost 50% of the gestational sac circumference. Maternal ovaries/adnexa appear essentially unremarkable. The right ovary measures 50 x 30 x 38 mm, estimated volume 29.3 cc. The left ovary measures 45 x 29 x 42 mm, estimated volume 29.0 cc. Ovarian blood flow was evaluated with color and spectral Doppler imaging. Arterial blood flow detected within each ovary. The urinary bladder was not completely evaluated/imaged at this time. Endovaginal scanning provided better visualization/evaluation of the gestational sac and contents, as discussed above. PROCEDURE INFORMATION: Exam: US First Trimester, Transabdominal and US , Transvaginal Exam date and time: 12/26/2022 1:13 AM Age: 22 years old Clinical indication: complicated by abdominal or pelvic pain; Generalized abdominal pain; First trimester (<14 weeks 0 days); Gestational age or lmp: 8w 1d; ; Additional info: Abd pain LABS AND CLINICAL REPORTS: Serum Choriogonadotropin (HCG): 27850 mIU/mL Last menstrual period start date: Unknown Gestational age (Established): 8 w 1 d Estimated due date (Established): 08/06/2023 TECHNIQUE: Imaging protocol: Real-time transabdominal obstetrical ultrasound of the maternal pelvis and a first trimester , less than 14 weeks 0 days, with image documentation. Transvaginal imaging was used for better evaluation of the fetus, adnexa, and/or cervix. COMPARISON: No comparison FINDINGS: Single living intrauterine fetus. [place] rump length of 16.5 mm estimates age at 8 weeks, 1 day. heart activity documented by the technologist, 153 bpm. Amniotic fluid appears adequate for gestation. Apparent subchorionic hematoma, measuring 24 x 16 x 23 mm. This appears to surround almost 50% of the gestational sac circumference. Maternal ovaries/adnexa appear essentially unremarkable. The right ovary measures 50 x 30 x 38 mm, estimated volume 29.3 cc. The left ovary measures 45 x 29 x 42 mm, estimated volume 29.0 cc. Ovarian blood flow was evaluated with color and spectral Doppler imaging. Arterial blood flow detected within each ovary. The urinary bladder was not completely evaluated/imaged at this time. Endovaginal scanning provided better visualization/evaluation of the gestational sac and contents, as discussed above. US/US OB <= 14 weeks fetus [id number] IMPRESSION: 1. Single living intrauterine fetus, 8 weeks, 1 day estimated age. 2. Apparent subchorionic hematoma, measuring 24 x 16 x 23 mm. This appears to surround almost 50% of the gestational sac circumference. 3. Essentially unremarkable ovaries. 4. Blood flow detected each ovary. 5. Other details discussed above.
[2022-12-26 00:44] VITALS: RESP 18; O2SAT 100
[2022-12-26] MEDS: ondansetron 2 mg/ML SDV 2 mL 4 MG IVP (00:44)
[2022-12-26] MEDS: morphine 4 mg/mL SDV 1 mL IVP (00:44)
[2022-12-26 00:52] LABS: Add Urine Microscopic? NO; Charge for UA Resulting for Rev
[2022-12-26 00:56] LABS: Bilirubin Urine Neg (Negative); Blood Urine Neg (Negative); Glucose Urine UA Norm (Normal); Ketones Urine Negative (Negative); Leukocyte Esterase Urine Negative (Negative); Nitrate Urine Negative (Negative); Protein Urine Neg (Negative); Urine Appearance Clear (CLEAR); Urine Color Yellow (Yellow); Urobilinogen Urine 4 mg/dL (Negative); pH Urine 6 (5-7)
[2022-12-26 01:02] VITALS: BP 161/113; PULSE 69; RESP 16; O2SAT 99
[2022-12-26 01:38] VITALS: BP 148/69; PULSE 64; RESP 20; O2SAT 99
[2022-12-26 02:03] VITALS: BP 148/69; PULSE 61; RESP 18; O2SAT 100
--- NOTE | 2022-12-26 09:27 | PC.SOCIAL ---
DIGITAL MEASUREMENT ADVISOR Referral Referral sent to ortho at this time. Clinic to contact patient with appt date/time.
== END 2022-12-26 02:04 | disposition home or self-care (01) ==
PROVIDERS: Emergency Provider Emergency Medicine; PCP Registered Nurse
DX: O26.891 Other specified pregnancy related conditions, first trimester (principal); R10.31 Right lower quadrant pain; Z3A.08 8 weeks gestation of pregnancy
CPT/HCPCS: 36415; 76801; 80053; 81003; 83690; 84702; 84703; 85025; 96361; 96374; 96375; 99284; J2270; J2405; J7030

== ENCOUNTER 2023-04-11 11:30 | Outpatient (CLI) | payer MEDICAID, SELFPAY ==
[2023-04-11] VITALS (9 sets, daily range): BP systolic 131–168; BP diastolic 72–95; PULSE 61–77; RESP 17; TEMP 36.8; BMI 41.9
[2023-04-11 12:39] LABS: Add Urine Microscopic? YES; Bilirubin Urine Neg (Negative); Blood Urine 2+ (Negative); Glucose Urine UA Norm (Normal); Ketones Urine Negative (Negative); Leukocyte Esterase Urine 2+ (Negative); Nitrate Urine Negative (Negative); Protein Urine Trace (Negative); Urine Appearance Hazy (CLEAR); Urine Color Yellow (Yellow); Urobilinogen Urine 1 mg/dL (Negative); pH Urine 6 (5-7)
[2023-04-11 12:43] LABS: Transitional Epi Cells Urine 0-4 /hpf
[2023-04-11 12:44] LABS: Add Urine Culture? Yes; Amorphous Sediment Urine TRACE /hpf; Bacteria Urine 1+ /hpf; Mucus Urine TRACE /hpf
--- NOTE | 2023-04-11 13:06 | US_ITS ---
WS: [id number] RENAL ULTRASOUND HISTORY: rule out kidney stone COMPARISON: None available. TECHNIQUE: 2-D and color Doppler imaging of the kidney submitted. Right kidney: 12.0 cm x 5.5 cm x 5.5 cm. Cortex: 1.0 cm Normal echogenicity with no hydronephrosis or mass. Left kidney: 12.3 cm x 6.0 cm x 5.3 cm. Cortex: 1.1 cm Mild splitting of the LEFT renal pelvis. No calyceal dilatation. Aorta: Normal. Urinary Bladder: Normal distention. IMPRESSION: 1. Very minimal fluid in the LEFT renal pelvis. This may be due to mild caliectasis or secondary to a central parapelvic cyst. No calyceal dilatation. 2. Negative RIGHT kidney.
[2023-04-11] MEDS: amoxicillin-clav 875-125 mg Tablet 1 TAB PO (13:18)
--- NOTE | 2023-04-11 13:51 | PC.NURSE ---
Patient vomited, PO medication noted to be present in vomit.
[2023-04-11] MEDS: ondansetron 2 mg/ML SDV 2 mL 4 MG IVP (14:12)
[2023-04-11] MEDS: cefTRIAXone 1,000 MG in sodium chloride 0.9% (plus) 50 ML 100 MG IV (14:13)
[2023-04-11 14:16] LABS: Basophils % 0.2 %; Eosinophils % 0.3 %; Lymphocytes # 1.6 10^3/uL (0.8-4.8); Lymphocytes % 11.5 %; Mean Corpuscular HGB Conc 33.2 g/dL (30-55); Mean Corpuscular Hemoglobin 27.6 pg (27-33); Mean Corpuscular Volume 83.2 fl (85-98); Mean Platelet Volume 11.2 fL (7.4-10.4); Monocytes # 0.7 10^3/uL (0.2-0.9); Monocytes % 5.1 %; Neutrophils # 11.02 10^3/uL (1.8-7.7); Neutrophils % 82.1 %; Nucleated Red Blood Cells % 0 %; Platelet Count 284 10^3/cmm (157-399); Red Blood Count 4.93 10^6/uL (3.85-5.65); Red Cell Distribution Width 14.4 % (12.1-15.1); White Blood Count 13.44 10^3/uL (3.29-11.43)
[2023-04-11 14:41] LABS: Alanine Aminotransferase 12 U/L (0-33); Albumin Level 4.1 g/dL (3.5-5.2); Alkaline Phosphatase 66 U/L (35-105); Aspartate Amino Transferase 15 U/L (0-32); Blood Urea Nitrogen 7 mg/dL (6-20); Calcium 9.4 mg/dL (8.5-10.5); Carbon Dioxide 22 mmol/L (22-29); Chloride 104 mmol/L (98-107); Globulin 3.7 g/dL (1.3-4.6); Glomerular Filtration Rate 102.8 mL/min (90-130); Glucose 88 mg/dL (65-115); Osmolality Calculated 283 mOsm/kg (285-295); Sodium 138 mmol/L (136-145); Total Bilirubin 0.5 mg/dL (0.15-1.2); Total Protein 7.8 g/dL (6.6-8.7)
[2023-04-11] MEDS: acetaminophen 500 mg Tablet 1000 MG PO (15:28)
--- NOTE | 2023-04-11 16:37 | P.TNLD_ITS ---
OB L&D Triage Visit Information: Date of evaluation: 04/11/23 Comments/Additional reason(s) for visit: 22-year-old G2, P0 at 23w2d presenting t [facility] for complaints of left flank pain and left lower abdominal pain that started last night while she was working. Thought she maybe had just worked too long on her feet but then also started feeling like she cannot have a bowel movement. Progressed to feeling like she could not pass urine as well. Has been feeling urinary urgency since that time. She reports this has been uncomplicated apart from her blood pressure being mildly elevated at her last OB visit. She has had 1 other which resulted in miscarriage. Denies other chronic medical conditions. Does report she did have a urinary infection at the beginning of this that has been treated and resolved. She denies contractions, vaginal bleeding, change in vaginal discharge. She has been feeling normal movement. She denies fever or other recent illness. She has had regular care in this with the physician in [place]. Evaluation: Baseline heart rate: 140 Laboratory results: Laboratory Tests 04/11/23 04/11/23 12:00 14:07 WBC 13.44 H RBC 4.93 Hgb 13.60 Hct 41.0 MCV 83.2 L MCH 27.6 MCHC 33.2 RDW 14.4 Plt Count 284 MPV 11.2 H Neut % (Auto) 82.1 Lymph % (Auto) 11.5 Cottle % (Auto) 5.1 Eos % (Auto) 0.3 Baso % (Auto) 0.2 Neut # (Auto) 11.02 H Lymph # (Auto) 1.6 Cottle # (Auto) 0.7 Eos # (Auto) 0.0 Baso # (Auto) 0.0 Nucleated RBC % (a uto) 0 Nucleated RBCs # 0.0 Sodium 138 Potassium 4.0 Chloride 104 Carbon Dioxide 22 Anion Gap 16.0 BUN 7 Creatinine 0.7 GFR Calculation 102.8 Glucose 88 Calculated Osmolal ity 283 L Calcium 9.4 Total Bilirubin 0.5 AST 15 ALT 12 Alkaline Phosphata se 66 Total Protein 7.8 Albumin 4.1 Globulin 3.7 Urine Color Yellow Urine Appearance Hazy A Urine pH 6 Ur Specific Gravit y 1.020 Urine Protein Trace Urine Glucose (UA) Norm Urine Ketones Negative Urine Blood 2+ H Urine Nitrate Negative Urine Bilirubin Neg Urine Urobilinogen 1 H Ur Leukocyte Karma ase 2+ H Urine RBC 5-10 H Urine WBC 5-10 H Ur Squamous Epith Cells 5-10 H Ur Transition Epit h Cell 0-4 Amorphous Sediment Trace Urine Bacteria 1+ H Urine Mucus Trace Vital signs: Vital Signs - 24 hr 04/11/23 11:43 04/11/23 11:59 04/11/23 12:13 Pulse Rate 75 77 67 Blood Pressure 168/95 143/89 143/91 04/11/23 12:28 04/11/23 12:46 04/11/23 15:38 Pulse Rate 68 70 64 Blood Pressure 131/86 149/72 147/79 Comments: Exam: Gen: alert, oriented, NAD Abd: negative CVA tenderness bilaterally at the time of my exam, no lower abdominal tenderness CV: RRR, no murmurs Resp: CTAB LE: No LE edema Final Diagnosis Final Diagnosis (1) Pyelonephritis: Plan: Renal ultrasound completed with minimal fluid to left kidney. She does not meet her criteria for sepsis with normal heart rate and has been afebrile. She does have a mildly elevated white blood cell count. She has had 1 dose of Rocephin and her pain is improved with Tylenol. Discussed likely etiology with patient and options for further management. After further discussion with patient plan to discharge home on Keflex to start 24 hours after Rocephin dose with strict precautions for return if she develops any fever or worsening symptoms. She is agreeable to plan. Did discuss with patient mildly elevated BPs during visit- encouraged to follow- up with OB for care and discuss- BP improved prior to discharge at 132/78. Status: Acute Code(s): N12 - Tubulo-interstitial nephritis, not specified as acute or chronic Coding Level of Care Code Acute Code for [facility] Diagnoses Pyelonephritis N12
--- NOTE | 2023-04-11 17:44 | PC.NURSE ---
Called in RX of Cephalexin 500 mg 1 tablet PO every 6 hours for 10 days to [facility]'s pharmacy on behalf of Dr. Maher. Informed patient of Rx needing picked up.
== END 2023-04-11 18:15 | disposition home or self-care (01) ==
LOC: OPOB 11:35 → OBGYN 11:36
PROVIDERS: PCP Registered Nurse; Visit Provider Family Medicine
DX: O26.899 Other specified pregnancy related conditions, unspecified trimester (principal); Z3A.00 Weeks of gestation of pregnancy not specified; N12 Tubulo-interstitial nephritis, not specified as acute or chronic
CPT/HCPCS: 36415; 59025; 76770; 80053; 81001; 85025; 87086; 96374; 99211; J0696; J2405

== ENCOUNTER 2023-05-27 19:35 | Outpatient (CLI) | payer MEDICAID, SELFPAY ==
[2023-05-27 19:35] VITALS: BMI 43.2
[2023-05-27 19:53] VITALS: BP 129/84; PULSE 93
[2023-05-27 20:00] VITALS: RESP 17
[2023-05-27 20:08] VITALS: BP 118/71; PULSE 85
[2023-05-27 20:16] LABS: Bilirubin Urine Neg (Negative); Blood Urine Neg (Negative); Glucose Urine UA Norm (Normal); Ketones Urine Negative (Negative); Leukocyte Esterase Urine Trace (Negative); Nitrate Urine Negative (Negative); Protein Urine Neg (Negative); Specific Gravity, Urine 1.025 (1.005-1.030); Urine Appearance Hazy (CLEAR); Urine Color Yellow (Yellow); Urobilinogen Urine 1 mg/dL (Negative); pH Urine 5 (5-7)
[2023-05-27 20:17] LABS: Amorphous Sediment Urine TRACE /hpf; Bacteria Urine 2+ /hpf; Hyaline Casts Urine 0-4 /lpf; Mucus Urine 2+ /hpf; RBC Urine 0-4 /hpf (0-2)
[2023-05-27 20:23] VITALS: BP 124/74; PULSE 81
[2023-05-27 20:28] VITALS: BP 124/74; PULSE 81; RESP 17; TEMP 36.8
== END 2023-05-27 20:43 | disposition home or self-care (01) ==
LOC: OPOB 19:45 → OBGYN 19:45
PROVIDERS: PCP Registered Nurse; Visit Provider Family Medicine
DX: O26.859 Spotting complicating pregnancy, unspecified trimester (principal); Z3A.00 Weeks of gestation of pregnancy not specified; R10.9 Unspecified abdominal pain
CPT/HCPCS: 81001

== ENCOUNTER → 2024-05-27 10:30 | Outpatient (BNVA) | payer MEDICAID, SELFPAY | PROVIDERS: PCP Registered Nurse; Visit Provider Emergency Medicine | DX: R50.9 Fever, unspecified (principal) | CPT/HCPCS: 87400; 87880 ==

== ENCOUNTER 2025-02-15 17:50 | Outpatient (CLI) | payer OTHER, SELFPAY ==
[2025-02-15 21:14] LABS: HIV 1 & 2 Antigen Non-Reactive (Non-Reactiv)
[2025-02-15 21:43] LABS: Hepatitis B Surface Antigen Non-Reactive (Nonreactive)
== END 2025-02-15 17:51 | disposition home or self-care (01) ==
PROVIDERS: PCP Registered Nurse
DX: Z01.89 Encounter for other specified special examinations (principal)
CPT/HCPCS: 86706; 86803; 87340; 87806